=== PATIENT | female | born 1995 ===

== ENCOUNTER 2016-12-13 17:42 | Emergency (ER) | payer OTHER ==
[2016-12-13 18:49] VITALS: BP 133/71
[2016-12-13] MEDS ORDERED: Cephalexin CAP* 500 MG PO ONE (20:21)
--- NOTE | 2016-12-13 20:23 | UC ---
Complaint Female HPI - HPI Summary HPI Summary: patient has been having dysuria, and increased frequency for the past two days, denies fever or back pain. - History Of Current Complaint Chief Complaint: UCGU Stated Complaint: URINARY Time Seen by Provider: 12/13/16 20:07 Hx Obtained From: Patient Hx Last Menstrual Period: 12/09/16 ?: No Onset/Duration: Sudden Onset, Lasting Days Timing: Constant Severity Initially: Moderate Severity Currently: Moderate Character: Burning Aggravating Factor(s): Urination - Risk Factors Ectopic Risk Factor: Negative - Allergies/Home Medications Allergies/Adverse Reactions: Allergies Allergy/AdvReac Type Severity Reaction Status Date / Time No Known Allergies Allergy Verified 12/13/16 18:49 Home Medications: Home Medications Levonorgestrel (Iud) [Mirena IUD] 20 mcg IU DAILY 12/13/16 [History Confirmed ] Phenazopyridine HCl [Azo Urinary Pain Relief] 95 mg PO DAILY 12/13/16 [History Confirmed 12/13/16] PMH/Surg Hx/FS Hx/Imm Hx Previously Healthy: Yes - Surgical History Surgical History: None - Family History Known Family History: Negative: Cardiac Disease, Hypertension - Social History Alcohol Use: Occasionally Substance Use Type: None Smoking Status (MU): Never Smoked Tobacco Review of Systems Constitutional: Negative Skin: Negative Eyes: Negative ENT: Negative Respiratory: Negative Cardiovascular: Negative Gastrointestinal: Negative Genitourinary: Dysuria, Frequency Neurovascular: Negative Musculoskeletal: Negative Neurological: Negative Psychological: Negative All Other Systems Reviewed And Are Negative: Yes Physical Exam Triage Information Reviewed: Yes Appearance: Well-Appearing, Well-Nourished, Pain Distress Vital Signs: Initial Vital Signs Temp 98.3 F 12/13/16 18:41 Pulse 82 12/13/16 18:41 Resp 17 12/13/16 18:41 BP 133/71 12/13/16 18:41 Pulse Ox 100 12/13/16 18:41 Vital Signs Reviewed: Yes Eye Exam: Normal ENT Exam: Normal ENT: Positive: Hearing grossly normal, Pharynx normal, TMs normal Dental Exam: Normal Neck exam: Normal Neck: Positive: Supple, Nontender, No Lymphadenopathy Respiratory Exam: Normal Respiratory: Positive: Chest non-tender, Lungs clear, Normal breath sounds Cardiovascular Exam: Normal Cardiovascular: Positive: RRR, No Murmur, Pulses Normal Abdominal Exam: Normal Abdomen Description: Positive: Nontender - no palpable pain, No Organomegaly, Soft, CVA Tenderness (R) - neg, CVA Tenderness (L) - neg Bowel Sounds: Positive: Present Musculoskeletal Exam: Normal Musculoskeletal: Positive: Strength Intact, ROM Intact, No Edema Neurological Exam: Normal Neurological: Positive: Alert, Muscle Tone Normal Psychological Exam: Normal Skin Exam: Normal Complaint Female Dx - Course Course Of Treatment: hx obtained, exam performed, meds reviewed, UA positive for nitrates no Leuks, will send for culture, treat with keflex - Differential Dx/Diagnosis Differential Diagnosis/HQI/PQRI: Ureteral Stone, Urinary Tract Infection Provider Diagnoses: Dysuria Discharge - Discharge Plan Condition: Stable Disposition: HOME Patient Education Materials: Dysuria (ED) Additional Instructions: 1. increase your fluid intake and take the medication as prescribed. 2. Your urine was sent for culture, we will notify you with any change in treatment.
== END 2016-12-13 20:29 | disposition home or self-care (01) ==
LOC: UCCORT 17:42
DX: R30.0 Dysuria (principal)
CPT/HCPCS: 81003; 87086; 99202; A9270-GY; G0463